=== PATIENT | male | born 1960 | race Caucasian/White ===

== ENCOUNTER → 2018-08-07 | Outpatient (CLI) | payer OTHER | END | disposition home or self-care (01) | LOC: CVU 14:36 | PROVIDERS: ATTEND Internal Medicine Cardiovascular Disease | DX: I08.8 Other rheumatic multiple valve diseases (principal); I48.0 Paroxysmal atrial fibrillation; I10 Essential (primary) hypertension | CPT/HCPCS: 93306 ==

== ENCOUNTER 2018-08-15 09:46 | Day surgery (SDC) | payer OTHER ==
[~2018-08-15] VITALS: Ht 188 cm; Wt 93.2 kg
[2018-08-15] MEDS ORDERED: SOTA160T PO (10:49)
[2018-08-15] MEDS ORDERED: APIX5TAB PO (10:49)
[2018-08-15] MEDS ORDERED: PANT40TA5 PO (10:49)
[2018-08-15] MEDS ORDERED: AMLO1TAB99 PO (10:49)
[2018-08-15 10:50] VITALS: BP 132/94
[2018-08-15 11:21] LABS: ANION GAP 6 mmol/L (5-15); CALCIUM 8.7 mg/dL (8.5-10.1); CHLORIDE 108 mmol/L (98-107)
[2018-08-15] MEDS ORDERED: FENTANYL PF 100 MCG/2ML ONE ×2 (12:30)
[2018-08-15] MEDS ORDERED: MIDAZOLAM 1 MG/ML, 5ML ONE (12:30)
== END 2018-08-15 14:00 | disposition home or self-care (01) ==
LOC: CACL 09:46
PROVIDERS: ATTEND Internal Medicine Cardiovascular Disease
DX: I48.0 Paroxysmal atrial fibrillation (principal); I48.2 Chronic atrial fibrillation; I10 Essential (primary) hypertension; Z72.89 Other problems related to lifestyle; Z79.01 Long term (current) use of anticoagulants; Z79.899 Other long term (current) drug therapy
CPT/HCPCS: 36415; 80048; 92960; 93005; J2250; J3010